=== PATIENT | male | born 1975 | race Caucasian/White ===

== ENCOUNTER 2020-12-23 17:09 | Observation (INO) | payer BC ==
[~2020-12-23] VITALS: Ht 193 cm; Wt 188.2 kg
[2020-12-23 17:57] LABS: RED BLOOD COUNT 5.12 M/UL (4.20-5.50); WHITE BLOOD COUNT 5.8 K/UL (4.5-11.0)
[2020-12-23 18:38] LABS: BUN/CREATININE RATIO 9 (0-10)
--- NOTE | 2020-12-24 01:02 | NUR ---
PT REFUSED FALL RISK AND SX PERCAUTIONS. SAID HE DOESNT SEE WHY THE PHYSCICIAN WOULD HAVE ORDERED THEM.
[2020-12-24] MEDS ORDERED: AMLODIPINE BESY10 MG PO (01:54)
[2020-12-24] MEDS ORDERED: ASPIRIN EC81 MG PO (11:28)
[2020-12-24 13:45] LABS: HEMOGLOBIN 14.3 gm/dl (14.0-17.5); RED BLOOD COUNT 4.86 M/UL (4.20-5.50); WHITE BLOOD COUNT 5.1 K/UL (4.5-11.0)
--- NOTE | 2020-12-24 18:18 | NUR ---
NOTIFIED DR HO OF PATIENT REFUSING TO WEAR TELE.
[2020-12-25 06:04] LABS: HEMOGLOBIN 15.2 gm/dl (14.0-17.5); RED BLOOD COUNT 5.25 M/UL (4.20-5.50); WHITE BLOOD COUNT 5.4 K/UL (4.5-11.0)
[2020-12-25 06:38] LABS: BUN/CREATININE RATIO 13 (0-10)
== END 2020-12-25 12:23 | disposition home or self-care (01) ==
LOC: ER1 17:09 → CDU 22:05 → MED SURG 4 22:05
PROVIDERS: Emergency Medicine; Internal Medicine; Physician Assistant; ADMIT Internal Medicine
DX: G45.9 Transient cerebral ischemic attack, unspecified (principal); R59.1 Generalized enlarged lymph nodes; E78.1 Pure hyperglyceridemia; I10 Essential (primary) hypertension; E66.01 Morbid (severe) obesity due to excess calories; Z68.41 Body mass index [BMI] 40.0-44.9, adult; R60.0 Localized edema; Z20.822 Contact with and (suspected) exposure to COVID-19; Z79.82 Long term (current) use of aspirin; Z79.899 Other long term (current) drug therapy
CPT/HCPCS: ECHO; 36415; 70450; 70496; 70498; 71045; 80048; 80053; 80061; 80307; 82550; 82553; 82607; 82746; 83036; 83874; 84439; 84443; 84484; 85025; 85027; 85610; 85652; 85730; 86140; 93306; 96372; 99285; G0378; J1650; Q9967; U0002